=== PATIENT | male | born 1975 | race American Indian/Alaskan Native ===

== ENCOUNTER 2019-04-27 07:08 | Day surgery (SDC) | payer OTHER ==
[~2019-04-27 07:08] MED LIST: ANCEF/STERILE WATER 2 GM/20 ML 2 GM/20 ML SYRINGE IV ONE; MARCAINE 0.25% INFILTRATI ONE; XYLOCAINE 1% 20 mL INFILTRATI ONE
[2019-04-27] MEDS ORDERED: MARCAINE 0.25% INFILTRATI ONE ×3 (07:23→09:24)
[2019-04-27] MEDS ORDERED: XYLOCAINE 1% 20 mL ONE (07:23)
--- NOTE | 2019-04-27 07:45 | Anesthesia Day of Surgery ---
Anesthesia Day of Surgery - Day of Surgery Patient Examined: Yes Patient H&P Reviewed: Yes Patient is NPO: Yes
--- NOTE | 2019-04-27 07:45 | Anesthesia Consultation ---
Anesthesia Consult and Med Hx Date of service: 04/27/19 - Airway Anesthetic Teeth Evaluation: Good ROM Head & Neck: Adequate Mental/Hyoid Distance: Adequate Mallampati Class: Class II Intubation Access Assessment: Good - Pulmonary Exam CTA: Yes - Cardiac Exam Cardiac Exam: RRR - Pre-Operative Health Status ASA Pre-Surgery Classification: ASA1 Proposed Anesthetic Plan: General, MAC - Pulmonary Hx Smoking: Yes (QUIT 03/14/19) Hx Sleep Apnea: No - Central Nervous System Hx Psychiatric Problems: Yes (PTSD-AFTER SERVICE) - Hematic Hx Anemia: No - Other Systems Hx Alcohol Use: No Hx Substance Use: No Hx Cancer: No
[2019-04-27] MEDS ORDERED: ZOFRAN IV PRN (07:46)
[2019-04-27] MEDS ORDERED: DILAUDID IV PRN (07:46)
[2019-04-27] MEDS ORDERED: VERSED IV NR (08:00)
[2019-04-27] MEDS: LACTATED RINGERS 1,000 ML IV SCH ×2 (08:15→10:25)
[2019-04-27] MEDS ORDERED: DIPRIVAN 10 MG/ML IV ONE (08:53)
[2019-04-27] MEDS ORDERED: VERSED ONE ×2 (08:53→09:20)
[2019-04-27] MEDS ORDERED: SUBLIMAZE ONE (08:53)
[2019-04-27] MEDS ORDERED: XYLOCAINE MPF 2% ONE (08:56)
[2019-04-27] MEDS ORDERED: KETAMINE 50 MG/ML-WATER SYRING ONE (09:00)
[2019-04-27] MEDS ORDERED: XYLOCAINE 1% 20 mL INFILTRATI ONE ×2 (09:24)
--- NOTE | 2019-04-27 10:05 | Short Stay Summary ---
Short Stay Documentation Date of service: 04/27/19 - History Principal diagnosis: soft tissue mass left shoulder - Allergies and Medications Current Medications: Allergies No Known Allergies Allergy (Verified 04/27/19 06:25) Home Medications Medication Instructions Recorded Confirmed Last Taken Type Sertraline 100 mg PO 04/26/19 Unknown History traZODone 100 mg PO PRN 04/26/19 04/27/19 04/26/19 21:00 History Active Medications Hydromorphone HCl (Dilaudid) 0.25 mg IV Q10MIN PRN PRN Reason: Pain, Moderate (4-6) Stop: 04/27/19 16:00 Lactated Ringer's (Lactated Ringers) 1,000 mls @ 100 mls/hr IV DIRECT AMOS Last Admin: 04/27/19 08:15 Dose: 100 mls/hr Documented by: Midazolam HCl (Versed) 2 mg IV PREOP NR Stop: 04/27/19 23:59 Ondansetron HCl (Zofran) 4 mg IV ONCE PRN PRN Reason: Nausea And Vomiting Stop: 04/27/19 16:00 - Brief post op/procedure progress note Date of procedure: 04/27/19 Pre-op diagnosis: left shoulder soft tissue mass Post-op diagnosis: same Procedure: excision soft tissue mass left shoulder Anesthesia: MAC, local Findings: 9cm lobulated fatty mass of left shoulder consistent with lipoma Surgeon: BEATRIZ TELLEZ Estimated blood loss: minimal Pathology: list (soft tissue mass left shoulder) Specimen disposition: to lab Condition: stable - Hospital course Hospital course: Pt observed in PACU and discharged to home in stable condition when criteria met - Disposition Condition at discharge: Good Disposition: DC-01 TO HOME OR SELFCARE Short Stay Discharge Plan Activity: no restrictions Diet: regular Wound: open to air, per your surgeon's advice Additional Instructions: SEE PRINTED DISCHARGE INSTRUCTIONS. Follow up with: [facility] [Primary Care Provider] - 7 Days BEATRIZ TELLEZ DO [Staff Physician] - 7 Days Prescriptions: HYDROcodone/APAP 5-325 [Mulga 5/325] 1 each PO Q6HR PRN #5 tablet PRN Reason: Pain
[2019-04-27 11:03] VITALS: BP 114/74
--- NOTE | 2019-04-27 11:48 | Post Anesthesia Evaluation ---
- Post Anesthesia Evaluation Patient Participated: Yes Airway Patent: Yes Stable Respiratory Function: Yes Nausea/Vomiting: No Temp > 96.8F: Yes Pain Manageable: Yes Adequeate Hydration: Yes Anesthesia Complications: No Block Receding Appropriately: Not Applicable Patient on Ventilator: No
--- NOTE | 2019-04-29 12:51 | Operative Report ---
PREOPERATIVE DIAGNOSIS: Left shoulder soft tissue mass. POSTOPERATIVE DIAGNOSIS: Left shoulder soft tissue mass. PROCEDURE PERFORMED: Excision of soft tissue mass, left shoulder. ANESTHESIA: MAC and local. FINDINGS: A 9 cm lobulated fatty mass of left shoulder consistent with lipoma. SURGEON: Nydia Escobar DO ESTIMATED BLOOD LOSS: Minimal. PATHOLOGY: Soft tissue mass, left shoulder. SPECIMEN DISPOSITION: To lab. CONDITION ON DISPOSITION: The patient is stable to PACU. HISTORY OF PRESENT ILLNESS AND INDICATIONS: The patient is a 43-year-old male who presented to the surgery clinic for evaluation of a left shoulder mass that had been present for many years. It had grown in size and was becoming more uncomfortable, especially when performing certain activities. Recommendation was to have the mass removed. All risks, benefits and alternatives to surgery were discussed with the patient and questions answered. Consent was obtained. PROCEDURE IN DETAIL: The patient was identified in the preoperative area, taken back to the operating room and placed on the operating table in supine position. After anesthesia was induced, the left shoulder was prepped and draped in the usual sterile fashion and timeout performed. Local anesthetic was infiltrated into the intended incision site. An approximately 7 cm incision was made in line with the limb using a 15 blade. Dissection was carried down through the skin and subcutaneous tissue using Bovie electrocautery until the fatty mass was identified. The fatty mass was then or dissected free from the surrounding tissue using combination of blunt dissection and electrocautery. Once the entire mass was circumferentially dissected, it was transected off of the muscle fascia using electrocautery. The mass did overlie the fascia and did not extend past deeper to it. It was multilobulated. The mass measured approximately 9 cm. The wound was then checked for hemostasis and irrigated. Hemostasis was carefully ensured or achieved using electrocautery and pressure. Once hemostasis was satisfactory, the wound was closed in a 2-layer fashion. The deeper layer was closed with interrupted 3-0 Vicryl sutures. The skin was closed with 4-0 Monocryl subcuticular running stitch and skin glue. Once the skin glue was dry, 4 x 4 gauze was placed over the incision and secured with an Elastoplast tape compression dressing. At the end of the case, all sponge, instrument, sharp counts were correct x 2. The patient was awoken from anesthesia and taken to PACU in stable condition. [facility]# [id number] SUKH/NICHOLAS
== END 2019-04-27 07:09 | disposition home or self-care (01) ==
LOC: OR 07:08 → EDSEX 07:30
PROVIDERS: ATTEND Surgery
DX: D17.22 Benign lipomatous neoplasm of skin and subcutaneous tissue of left arm (principal); Z87.891 Personal history of nicotine dependence; Z79.899 Other long term (current) drug therapy; Z98.890 Other specified postprocedural states
CPT/HCPCS: 23071; 88304; J0690; J2250; J2704; J3010; J7120; 88307